=== PATIENT | male | born 1970 | race Caucasian/White ===

== ENCOUNTER → 2017-07-13 | Outpatient (REF) | payer OTHER | LOC: M LAB REF 17:33 | PROVIDERS: ATTEND Surgery | DX: L72.3 Sebaceous cyst (principal) ==

== ENCOUNTER → 2018-08-29 | Outpatient (CLI) | payer OTHER ==
[2018-08-29 14:09] LABS: BLOOD UREA NITROGEN 12 MG/DL (7-18); CALCIUM LEVEL 9.1 MG/DL (8.5-10.1); CARBON DIOXIDE LEVEL 24 MEQ/L (21-32); CHLORIDE LEVEL 104 MEQ/L (98-107); CREATININE FOR GFR 0.93 MG/DL (0.70-1.30); GLOMERULAR FILTRATION RATE > 60.0 (>60); GLUCOSE, FASTING 303 MG/DL (70-100); SODIUM LEVEL 138 MEQ/L (136-145)
== END ==
LOC: M LAB 11:52
PROVIDERS: ATTEND Orthopaedic Surgery
DX: E10.9 Type 1 diabetes mellitus without complications (principal)

== ENCOUNTER → 2023-06-02 | Outpatient (REF) | LOC: M PLAIMG 13:08 | PROVIDERS: ATTEND Internal Medicine | DX: M54.50 Low back pain, unspecified (principal); M51.36 Other intervertebral disc degeneration, lumbar region ==

== ENCOUNTER → 2024-05-10 | Outpatient (REF) | payer OTHER ==
[2024-05-10 18:21] LABS: CREATININE, URINE 36.5 MG/DL; MALB URINE SIEMENS < 3.0 MG/L
[2024-05-10 18:56] LABS: ALBUMIN 3.6 G/DL (3.2-5.2); ALKALINE PHOSPHATASE 119 U/L (46-116); ALT/SGPT 15 U/L (7.0-40); AST/SGOT < 8 U/L (<34); BILIRUBIN,TOTAL 0.4 MG/DL (0.3-1.2); BLOOD UREA NITROGEN 13 MG/DL (9-23); CALCIUM LEVEL 9.6 MG/DL (8.5-10.1); CARBON DIOXIDE LEVEL 25 MMOL/L (20-31); CHLORIDE LEVEL 107 MMOL/L (98-107); CHOLESTEROL LEVEL 154 MG/DL (<200); CHOLESTEROL RISK RATIO 5.44 (<5); GLOMERULAR FILTRATION RATE > 60.0 (>56); GLUCOSE, FASTING 281 MG/DL (60-100); HDL CHOLESTEROL 28.3 MG/DL (>40); LDL CHOLESTEROL 64.7 MG/DL (<100); NON-HDL-C 125.7 MG/DL; POTASSIUM SERUM 4.6 MMOL/L (3.5-5.1); SODIUM LEVEL 139 MMOL/L (136-145); TOTAL PROTEIN 6.9 G/DL (5.7-8.2); TRIGLYCERIDES LEVEL 305 MG/DL (<150)
[2024-05-10 18:57] LABS: THYROID STIMULATING HORMONE 1.691 uIU/ML (0.55-4.78)
[2024-05-10 18:58] LABS: TOTAL 25(OH) VITAMIN D 21.8 NG/ML (20.0-100.0)
[2024-05-10 19:20] LABS: HEMOGLOBIN A1c 9.5 % (4.0-6.0)
== END ==
LOC: M LAB REF 16:19
PROVIDERS: ATTEND Physician Assistant
DX: I10 Essential (primary) hypertension (principal); E66.9 Obesity, unspecified; E55.9 Vitamin D deficiency, unspecified

== ENCOUNTER → 2024-06-19 | Outpatient (CLI) | payer OTHER | LOC: M SOG 07:52 | PROVIDERS: ATTEND Physician Assistant | DX: M25.511 Pain in right shoulder (principal); R93.6 Abnormal findings on diagnostic imaging of limbs ==

== ENCOUNTER 2024-09-19 12:38 | Day surgery (SDC) | payer OTHER ==
[~2024-09-19] VITALS: Ht 182.9 cm; Wt 112.4 kg
[~2024-09-19 12:38] MED LIST: ALPR1TAB3 PO; ASPI81TA26 PO; ATOR1TAB21 PO; DIVA500T9 PO; DULO1CAP6 PO; GABA-1490 PO; JARD1TAB3 PO; LAMO100T3 PO; LANTINJ4 SC; LOPI600T PO; LOSA50TA28 PO; METF-838 PO; METO1TAB32 PO; OMEP-173 PO; PIOG1TAB36 PO; PRAV40TA2 PO; SEMA0.257 SC
[2024-09-19] MEDS ORDERED: LIDOCAINE 2% 100MG/5ML SDV (FOR ANES.) As Ordered ONE (12:48)
[2024-09-19] MEDS ORDERED: propofoL 200 MG/20 ML VIAL As Ordered ONE (12:48)
[2024-09-19] MEDS ORDERED: GLUCOSE 4 GM CHEW PO PRN (13:35)
[2024-09-19] MEDS ORDERED: DEXTROSE 50% 50ML SYRINGE IV PRN (13:35)
[2024-09-19] MEDS ORDERED: GLUCAGON INJ 1MG VIAL SC PRN (13:35)
[2024-09-19] MEDS: INSULIN LISPRO (NovoLOG) PER UNIT SC PRN (13:50)
[2024-09-19 14:31] VITALS: TEMP 98.9
[2024-09-19 14:48] VITALS: BP 104/52; O2SAT 97
== END 2024-09-19 15:01 | disposition home or self-care (01) ==
LOC: M OPP 12:38
PROVIDERS: ATTEND Surgery
DX: Z12.11 Encounter for screening for malignant neoplasm of colon (principal); D12.5 Benign neoplasm of sigmoid colon; Z80.0 Family history of malignant neoplasm of digestive organs; Z86.73 Personal history of transient ischemic attack (TIA), and cerebral infarction without residual deficits; Z88.0 Allergy status to penicillin; Z88.1 Allergy status to other antibiotic agents; Z91.030 Bee allergy status; Z79.82 Long term (current) use of aspirin; Z79.4 Long term (current) use of insulin; Z79.84 Long term (current) use of oral hypoglycemic drugs; Z79.899 Other long term (current) drug therapy; F17.210 Nicotine dependence, cigarettes, uncomplicated
CPT/HCPCS: 45385; 88305; J1815

== ENCOUNTER 2024-11-02 11:06 | Day surgery (SDC) | payer OTHER ==
[~2024-11-02] VITALS: Ht 182.9 cm; Wt 104.3 kg
[~2024-11-02 11:06] MED LIST changes: +BASA100I SQ; +IBUP80TA PO; +LAMO25TA4 PO; +PIOG1TAB37 PO
[2024-11-02] MEDS ORDERED: propofoL 200 MG/20 ML VIAL As Ordered ONE (11:25)
[2024-11-02] MEDS ORDERED: LIDOCAINE 2% 100MG/5ML SDV (FOR ANES.) As Ordered ONE (11:25)
[2024-11-02] MEDS ORDERED: PHENYLephrine 500MCG 5ML (100MCG/ML) SYRINGE As Ordered ONE (12:05)
[2024-11-02 12:19] VITALS: TEMP 97.3
[2024-11-02 12:39] VITALS: BP 114/67; O2SAT 89
== END 2024-11-02 12:45 | disposition home or self-care (01) ==
LOC: M OPP 11:06
PROVIDERS: ATTEND Surgery
DX: D12.5 Benign neoplasm of sigmoid colon (principal); D12.3 Benign neoplasm of transverse colon; D12.0 Benign neoplasm of cecum; K64.1 Second degree hemorrhoids; Z86.0100 Personal history of colon polyps, unspecified; Z86.73 Personal history of transient ischemic attack (TIA), and cerebral infarction without residual deficits; Z88.0 Allergy status to penicillin; Z88.1 Allergy status to other antibiotic agents; Z91.030 Bee allergy status; Z79.82 Long term (current) use of aspirin; Z79.4 Long term (current) use of insulin; Z79.84 Long term (current) use of oral hypoglycemic drugs; Z79.899 Other long term (current) drug therapy; F17.210 Nicotine dependence, cigarettes, uncomplicated
CPT/HCPCS: 45385; 88305; J2371

== ENCOUNTER → 2025-04-06 | Outpatient (REF) | payer OTHER ==
[~2025-04-06] MED LIST changes: +BASA100I SC; +LAMO-18 PO; +LAMO100T80 PO; -LAMO25TA4 PO; +MED REC COMMENT; +METF10004 PO; -PRAV40TA2 PO; +PRAV40TA85 PO
[2025-04-06 13:28] LABS: CREATININE, URINE 22.3 MG/DL; MALB URINE SIEMENS < 3.0 MG/L
[2025-04-06 14:31] LABS: PSA SCREENING 0.64 NG/ML (< 4.00)
[2025-04-06 15:20] LABS: ALT/SGPT 13 U/L (7.0-40); AST/SGOT 10 U/L (<34); CALCIUM LEVEL 9.2 MG/DL (8.5-10.1); CARBON DIOXIDE LEVEL 26 MMOL/L (20-31); CHLORIDE LEVEL 102 MMOL/L (98-107); CHOLESTEROL LEVEL 133 MG/DL (<200); CHOLESTEROL RISK RATIO 4.18 (<5); CREATININE FOR GFR 0.76 MG/DL (0.70-1.30); GLOMERULAR FILTRATION RATE > 90.0 (>56); NON-HDL-C 101.2 MG/DL; POTASSIUM SERUM 4.6 MMOL/L (3.5-5.1); SODIUM LEVEL 137 MMOL/L (136-145); TRIGLYCERIDES LEVEL 457 MG/DL (<150)
== END ==
LOC: M LAB REF 11:40
PROVIDERS: ATTEND Physician Assistant
DX: I10 Essential (primary) hypertension (principal); E78.5 Hyperlipidemia, unspecified; Z12.5 Encounter for screening for malignant neoplasm of prostate

== ENCOUNTER → 2025-07-12 | Outpatient (REF) | payer MEDICARE, OTHER ==
[2025-07-12 13:14] LABS: CREATININE, URINE 20.6 MG/DL; MALB URINE SIEMENS < 3.0 MG/L
[2025-07-12 14:36] LABS: ALT/SGPT 15 U/L (7.0-40); AST/SGOT 10 U/L (<34); CALCIUM LEVEL 9.0 MG/DL (8.5-10.1); CARBON DIOXIDE LEVEL 25 MMOL/L (20-31); CHLORIDE LEVEL 105 MMOL/L (98-107); CHOLESTEROL LEVEL 186 MG/DL (<200); CHOLESTEROL RISK RATIO 5.48 (<5); CREATININE FOR GFR 0.73 MG/DL (0.70-1.30); GLOMERULAR FILTRATION RATE > 90.0 (>56); LDL CHOLESTEROL 84.1 MG/DL (<100); NON-HDL-C 152.1 MG/DL; POTASSIUM SERUM 5.1 MMOL/L (3.5-5.1); SODIUM LEVEL 139 MMOL/L (136-145); TRIGLYCERIDES LEVEL 340 MG/DL (<150)
[2025-07-12 16:08] LABS: ESTIMATED AVERAGE GLUCOSE 235.0 MG/DL (60-110)
== END ==
LOC: M LAB REF 12:20
PROVIDERS: ATTEND Family Medicine Addiction Medicine
DX: E11.9 Type 2 diabetes mellitus without complications (principal)